=== PATIENT | male | born 1965 | race Caucasian/White ===

== ENCOUNTER 2016-10-27 13:09 | Emergency (ER) | payer BC | END 2016-10-27 14:56 | disposition home or self-care (01) | LOC: D.ER 13:09 | DX: S61.213A Laceration without foreign body of left middle finger without damage to nail, initial encounter (principal); W26.9XXA Contact with unspecified sharp object(s), initial encounter; Z23 Encounter for immunization; F17.200 Nicotine dependence, unspecified, uncomplicated ==